=== PATIENT | male | born 1995 | race Caucasian/White ===

== ENCOUNTER 2025-01-30 09:42 | Outpatient (CLI) | payer BC, SELFPAY ==
[2025-01-30 16:59] LABS: Hematocrit 45.6 % (42.0-52.0); Hemoglobin 16.7 g/dL (14.1-18.0); Immature Granulocytes % 0.3 %; Mean Corpuscular HGB Conc 36.6 g/dL (31.8-35.4); Mean Corpuscular Hemoglobin 32.8 pg (27.0-31.2); Mean Corpuscular Volume 89.6 fl (80-94); Nucleated Red Blood Cells % 0 %; Platelet Count 256 K/mm3 (142-424); Red Blood Count 5.09 M/mm3 (4.60-6.20); Red Cell Distribution Width-SD 38.5 fL; White Blood Count 6.2 K/mm3 (4.8-10.8)
[2025-01-30 17:30] LABS: Hemoglobin A1C 4.7 % (4.0-6.0)
[2025-01-30 17:46] LABS: Albumin Level 4.1 g/dl (3.5-5.0); Chloride 101 mmol/L (98-107); Sodium 142 mmol/L (136-145)
[2025-01-30 17:47] LABS: Potassium 3.9 mmoL/L (3.5-5.1)
[2025-01-30 17:49] LABS: Alanine Aminotransferase 94 U/L (12-78); Anion Gap 15.9 mEq/L (5-15); Aspartate Amino Transferase 50 U/L (17-59); Blood Urea Nitrogen 16 mg/dl (9-20); Carbon Dioxide 29 mmol/L (22.0-30.0); Creatinine,Serum 1.00 mg/dl (0.66-1.25); Estimated Glomerular Filt Rate 87 ml/min (>60); GFR (African American) 105 ML/MIN (>60); Globulin 3.2 g/dL (1.3-3.2); Total Protein,Serum 7.3 g/dl (6.3-8.2)
[2025-01-30 17:50] LABS: Albumin/Globulin Ratio 1.3 (1.1-1.8); Alkaline Phosphatase 59 U/L (38-126); Bilirubin,Total 0.7 mg/dl (0.2-1.3); Calcium 8.5 mg/dl (8.4-10.2); Cholesterol 116 mg/dl (140-200); Glucose 65 mg/dl (74-100); HDL Cholesterol 30 mg/dl (40-60); Triglycerides 69 mg/dl (30-150)
[2025-01-30 18:23] LABS: Thyroid Stimulating Hormone 1.71 uIU/mL (0.465-4.68)
[2025-01-30 18:38] LABS: Hepatitis C Ab Qual. W/ RFX NEGATIVE (Negative)
[2025-02-01 08:37] LABS: Hepatitis B Surface Antigen Negative (Negative)
== END 2025-01-30 23:59 | disposition home or self-care (01) ==
LOC: LAB.DROPOF 02-02 09:43
PROVIDERS: PCP Nurse Practitioner Family; Visit Provider Nurse Practitioner Family
DX: E66.9 Obesity, unspecified (principal); R03.0 Elevated blood-pressure reading, without diagnosis of hypertension; Z11.59 Encounter for screening for other viral diseases; Z11.4 Encounter for screening for human immunodeficiency virus [HIV]
CPT/HCPCS: 80053; 80061; 83036; 84443; 85025; 86803; 87340; 87389